=== PATIENT | male | born 1985 | race Caucasian/White ===

== ENCOUNTER → 2018-09-06 13:47 | Outpatient (CLI) | payer BC, SELFPAY | PROVIDERS: PCP Family Medicine; Visit Provider Otolaryngology | DX: G47.33 Obstructive sleep apnea (adult) (pediatric) (principal) | CPT/HCPCS: 95806 ==

== ENCOUNTER → 2018-10-18 13:49 | Outpatient (CLI) | payer BC, SELFPAY ==
--- NOTE | 2018-10-18 13:55 | US_ITS ---
US spinal canal content CLINICAL INDICATION: ITS.REASON: PALPABLE MASS OF LOWER BACK ORDERING PHYSICIAN: Shaye Vasques PATIENT AGE: 33 years Comparison: None FINDINGS: Ultrasound performed of the palpable abnormality on the lower back. The exam is very limited unable to completely penetrate the lesion and single lesion and whole. There is an isoechoic homogeneous area corresponding to the palpable abnormality measuring at least 5 x 3 cm possibly due to a lipoma. Sebaceous cyst would be an additional consideration. This does not have a simple cystic appearance IMPRESSION: 5 x 3 cm homogeneous area of echogenicity corresponding to palpable abnormality possibly due to lipoma. CT could confirm this finding. MRI may eventually be needed for further evaluation if this does not have a fatty appearance on CT.
--- NOTE | 2018-10-18 15:09 | CT_ITS ---
CT pelvis wo con INDICATION: Palpable abnormality in the left sacral area. Abnormal ultrasound. ITS.REASON: PALPABLE MASS ORDERING PHYSICIAN: Shaye Vasques PATIENT AGE: 33 years COMPARISON: None TECHNIQUE: Axial images are obtained without contrast. Sagittal and coronal reformatted images are reviewed as well. All CT scans at the facility use one or more dose reduction, viz: automated exposure control, ma/kV adjustment per patient size (including targeted exams where dose is matched to indication, i.e. head), or iterative reconstruction technique. FINDINGS: There is mild diffuse stranding of the subcutaneous fat in the lower lumbar region centrally. A BB is placed in the left upper buttock region to rosa the palpable abnormality. There is diffuse increased subcutaneous density in this region. This however is not well defined with stranding of the fat at this area. This is present on both left and right side but is more prominent on the left side. No loculated fluid collections are evident. No evidence of abscess or soft tissue mass. There is atrophy of the paraspinal muscles on the left at L5 and S1 with a suspected small laminotomy site on the left at L5-S1. There is concentric bulging disc at L4-5 with small broad-based left paracentral disc osteophyte complex with mild left lateral recess narrowing and mild left foraminal narrowing. Bulging disc/broad-based disc osteophyte complex also noted at L5-S1 with bilateral lateral recess and foraminal narrowing. IMPRESSION: 1. Asymmetric stranding of the subcutaneous region of the left posterior sacral region. Differential diagnosis would include some subcutaneous hemorrhage versus cellulitis. 2. Prior laminotomy on the left at L5-S1 with muscular atrophy on that side. 3. Bulging disc at L4-L5 and L5-S1 with small broad-based left paracentral disc osteophyte complex at L4-L5 with mild left lateral recess and foraminal narrowing and broad-based bulging discs/disc osteophyte complex at L5-S1 with bilateral lateral recess and foraminal narrowing
== END ==
PROVIDERS: PCP Family Medicine; Visit Provider Family Medicine
DX: R22.2 Localized swelling, mass and lump, trunk (principal)
CPT/HCPCS: 72192; 76800

== ENCOUNTER → 2018-10-27 15:53 | Outpatient (CLI) | payer SELFPAY | PROVIDERS: PCP Family Medicine; Visit Provider Family Medicine | DX: I49.9 Cardiac arrhythmia, unspecified (principal) | CPT/HCPCS: 93225; 93226 ==

== ENCOUNTER → 2019-01-25 13:30 | Outpatient (CLI) | payer OTHER, SELFPAY ==
[2019-01-25 13:57] LABS: Basophils % 0.3 % (0.1-2.0); Eosinophils # 0.2 K/mm3 (0.0-0.4); Eosinophils % 2.4 % (0.1-12.0); Hematocrit 45.3 % (42.0-52.0); Hemoglobin 15.6 g/dL (14.1-18.0); Lymphocytes # 2.3 K/mm3 (0.7-4.5); Mean Corpuscular HGB Conc 34.4 g/dL (31.8-35.4); Mean Corpuscular Hemoglobin 30.2 pg (27.0-31.2); Mean Corpuscular Volume 87.6 fl (80-94); Mean Platelet Volume 7.2 fl (7.4-10.4); Monocytes # 0.4 K/mm3 (0.1-1.0); Monocytes % 4.4 % (1.7-9.3); Neutrophils # 5.5 K/mm3 (1.8-7.8); Neutrophils % 65.9 % (37.0-80.0); Platelet Count 274 K/mm3 (142-424); Red Blood Count 5.17 M/mm3 (4.60-6.20); Red Cell Distribution Width 12.9 % (11.5-17.5); White Blood Count 8.4 K/mm3 (4.8-10.8)
[2019-01-25 15:20] LABS: Alanine Aminotransferase 50 U/L (12-78); Albumin Level 4.1 gm/dL (3.4-5.0); Alkaline Phosphatase 134 U/L (46-116); Aspartate Amino Transferase 30 U/L (15-37); Bilirubin,Direct 0.1 mg/dL (0.0-0.2); Bilirubin,Indirect 0.5 mg/dL (0.0-0.9); Bilirubin,Total 0.6 mg/dL (0.2-1.0); Total Protein,Serum 8.3 gm/dL (6.4-8.2)
[2019-01-28 17:29] LABS: Testosterone, Total, LC/MS 112.7 ng/dL (264.0-916.0); Testosterone,Free 2.9 pg/mL (8.7-25.1)
== END ==
PROVIDERS: Visit Provider Urology
DX: R79.89 Other specified abnormal findings of blood chemistry (principal); E29.1 Testicular hypofunction; E34.9 Endocrine disorder, unspecified
CPT/HCPCS: 36415; 80076; 84402; 84403; 85025

== ENCOUNTER → 2019-04-10 14:14 | Outpatient (POV) | payer OTHER, SELFPAY | PROVIDERS: Visit Provider Dermatology | DX: Z00.00 Encounter for general adult medical examination without abnormal findings (principal) ==

== ENCOUNTER → 2019-07-24 08:10 | Outpatient (CLI) | payer OTHER, SELFPAY ==
[2019-07-24 10:34] LABS: Bilirubin,Direct 0.1 mg/dL (0.0-0.2)
[2019-07-24 10:47] LABS: Alanine Aminotransferase 74 U/L (12-78); Albumin Level 3.9 gm/dL (3.4-5.0); Alkaline Phosphatase 105 U/L (46-116); Anion Gap 11.8 mEq/L (5-15); Aspartate Amino Transferase 40 U/L (15-37); Bilirubin,Total 0.6 mg/dL (0.2-1.0); Blood Urea Nitrogen 11 mg/dL (7-18); Calcium 9.3 mg/dL (8.5-10.1); Carbon Dioxide 31 mmol/L (21.0-32.0); Chloride 100 mmol/L (98-107); Chol/HDL Ratio 6.2 (1-3.5); Cholesterol 181 mg/dL (140-200); Creatinine,Serum 0.88 mg/dL (0.70-1.30); Estimated Glomerular Filt Rate 98 ml/min (>60); GFR (African American) 119 ML/MIN (>60); Globulin 3.9 gm/dl (1.3-3.2); Glucose 84 mg/dL (74-106); HDL Cholesterol 29 mg/dL (27-67); LDL Cholesterol 87 mg/dL (0-130); Potassium 3.8 mmoL/L (3.5-5.1); Sodium 139 mmol/L (136-145); Thyroid Stimulating Hormone 4.94 uIU/ml (0.358-3.740); Total Protein,Serum 7.8 gm/dL (6.4-8.2); Triglycerides 327 mg/dL (30-200); VLDL Cholesterol 65 mg/dL (0-40)
[2019-07-24 15:45] LABS: Free T4 (Free Thyroxine) 0.79 ng/dl (0.76-1.46)
[2019-07-27 06:28] LABS: Testosterone, Total, LC/MS 167.1 ng/dL (264.0-916.0); Testosterone,Free 5.4 pg/mL (8.7-25.1)
== END ==
PROVIDERS: Family Medicine; Nurse Practitioner Family; Visit Provider Urology
DX: E34.9 Endocrine disorder, unspecified (principal); E29.1 Testicular hypofunction
CPT/HCPCS: 36415; 80053; 80061; 82248; 83036; 84402; 84403; 84439; 84443

== ENCOUNTER → 2019-08-17 07:59 | Outpatient (CLI) | payer OTHER, SELFPAY ==
[2019-08-17 08:24] LABS: Basophils # 0.1 K/mm3 (0-0.2); Basophils % 0.6 % (0.1-2.0); Eosinophils # 0.1 K/mm3 (0.0-0.4); Eosinophils % 1.5 % (0.1-12.0); Hematocrit 48.2 % (42.0-52.0); Hemoglobin 15.1 g/dL (14.1-18.0); Lymphocytes # 2.2 K/mm3 (0.7-4.5); Mean Corpuscular HGB Conc 31.4 g/dL (31.8-35.4); Mean Corpuscular Hemoglobin 29.2 pg (27.0-31.2); Mean Corpuscular Volume 93.2 fl (80-94); Mean Platelet Volume 7.7 fl (7.4-10.4); Monocytes # 0.4 K/mm3 (0.1-1.0); Monocytes % 5.1 % (1.7-9.3); Neutrophils # 5.5 K/mm3 (1.8-7.8); Neutrophils % 66.7 % (37.0-80.0); Platelet Count 265 K/mm3 (142-424); Red Blood Count 5.17 M/mm3 (4.60-6.20); Red Cell Distribution Width 13.4 % (11.5-17.5); White Blood Count 8.3 K/mm3 (4.8-10.8)
[2019-08-17 09:22] LABS: Alanine Aminotransferase 52 U/L (12-78); Albumin Level 3.9 gm/dL (3.4-5.0); Alkaline Phosphatase 98 U/L (46-116); Aspartate Amino Transferase 29 U/L (15-37); Bilirubin,Direct 0.2 mg/dL (0.0-0.2); Bilirubin,Indirect 0.7 mg/dL (0.0-0.9); Bilirubin,Total 0.9 mg/dL (0.2-1.0); Total Protein,Serum 7.6 gm/dL (6.4-8.2)
[2019-08-18 12:32] LABS: Vitamin D 25 Hydroxy 15.1 ng/mL (30.0-100.0)
[2019-08-22 11:45] LABS: Testosterone, Total, LC/MS 742.5 ng/dL (264.0-916.0); Testosterone,Free 21.5 pg/mL (8.7-25.1)
== END ==
PROVIDERS: Family Medicine; Visit Provider Urology
DX: E29.1 Testicular hypofunction (principal); E55.9 Vitamin D deficiency, unspecified
CPT/HCPCS: 36415; 80076; 82652; 84402; 84403; 85025

== ENCOUNTER → 2019-10-17 08:38 | Outpatient (CLI) | payer OTHER, SELFPAY ==
[2019-10-18 11:19] LABS: Vitamin D 25 Hydroxy 23.4 ng/mL (30.0-100.0)
== END ==
PROVIDERS: Visit Provider Family Medicine
DX: E55.9 Vitamin D deficiency, unspecified (principal)
CPT/HCPCS: 36415; 82652

== ENCOUNTER → 2019-10-30 09:18 | Outpatient (POV) | payer OTHER, SELFPAY | PROVIDERS: Visit Provider Otolaryngology | DX: Z00.00 Encounter for general adult medical examination without abnormal findings (principal) ==

== ENCOUNTER → 2019-11-20 08:07 | Outpatient (CLI) | payer BC, OTHER, SELFPAY ==
--- NOTE | 2019-11-20 08:11 | CT_ITS ---
PROCEDURE: CT TEMPORAL BONE WITHOUT CLINICAL HISTORY: MIXED HEARING LOSS BILATERALLY, PERFORATION LY TYMPANIC MEMB COMPARISON: No exams were available for comparison TECHNIQUE: Axial images obtained with sagittal and coronal reformats. All CT scans at the facility use one or more dose reduction, viz: automated exposure control, ma/kV adjustment per patient size (including targeted exams where dose is matched to indication, i.e. head), or iterative reconstruction technique. FINDINGS: There is opacification of the right mastoid sinus and right epitympanic region. There is opacification of the right middle ear. Middle ear ossicles have an unremarkable appearance. No evidence of erosion of the scutum. Left mastoid sinus is unremarkable and there is aeration of the left middle ear with unremarkable appearing ossicles on the left. Incidental note is made of near complete opacification of the sphenoid sinus on the right. A lobular retention cyst is present in the floor the right maxillary sinus at 1.5 cm. There is mild mucosal thickening of the left maxillary sinus. There is very minimal widening of the right internal auditory canal compared to the left side. This is of questionable clinical significance. MRI may provide further evaluation of the IAC without and with contrast if clinically desired. IMPRESSION: 1. Opacified right mastoid sinus and epitympanic region as well as opacification of the right middle ear. No evidence of erosion of the scutum. 2. Minimal asymmetry of the internal auditory canals the right slightly larger than the left which is of questionable clinical significance and may be better evaluated with MRI without and with enhancement 3. Mild paranasal sinus disease Dictated by: Jeffery Stevens MD 11/21/2019 09:27 Electronically signed by Jeffery Stevens MD in [facility] 11/21/2019 09:27
== END ==
PROVIDERS: PCP Family Medicine; Visit Provider Otolaryngology
DX: H90.6 Mixed conductive and sensorineural hearing loss, bilateral (principal); H72.92 Unspecified perforation of tympanic membrane, left ear; I88.9 Nonspecific lymphadenitis, unspecified
CPT/HCPCS: 70480

== ENCOUNTER → 2019-11-20 10:03 | Outpatient (POV) | payer BC, OTHER, SELFPAY | PROVIDERS: Visit Provider Otolaryngology | DX: Z00.00 Encounter for general adult medical examination without abnormal findings (principal) ==

== ENCOUNTER 2019-11-23 13:32 | Outpatient (RCR) | payer BC, OTHER, SELFPAY | END 2019-11-23 14:00 | disposition home or self-care (01) | LOC: PT 13:32 | PROVIDERS: Visit Provider Nurse Practitioner Family | DX: M79.645 Pain in left finger(s) (principal); M25.532 Pain in left wrist | CPT/HCPCS: 97760 ==

== ENCOUNTER → 2019-12-06 08:55 | Outpatient (CLI) | payer BC, OTHER, SELFPAY ==
--- NOTE | 2019-12-06 09:02 | XR_ITS ---
PROCEDURE: XR WRIST LT MIN 3V CLINICAL INDICATION: left thumb/ wrist pain COMPARISON: No exams were available for comparison FINDINGS: There is no acute fracture dislocation or other focal bony lesion. Joint spaces are preserved. IMPRESSION: No acute findings. Dictated by: Angel Collins 12/06/2019 09:49 Electronically signed by Angel Collins in [facility] 12/06/2019 09:49
== END ==
PROVIDERS: PCP Family Medicine; Visit Provider Orthopaedic Surgery
DX: M25.532 Pain in left wrist (principal)
CPT/HCPCS: 73110

== ENCOUNTER → 2020-01-11 12:25 | Outpatient (CLI) | payer BC, OTHER, SELFPAY ==
[2020-01-12 08:31] LABS: Vitamin D 25 Hydroxy 33.8 ng/mL (30.0-100.0)
== END ==
PROVIDERS: Visit Provider Family Medicine
DX: E55.9 Vitamin D deficiency, unspecified (principal)
CPT/HCPCS: 36415; 82652

== ENCOUNTER → 2020-07-25 09:19 | Outpatient (CLI) | payer BC, OTHER, MEDICAID, SELFPAY ==
[2020-07-25 10:29] LABS: Basophils % 0.3 % (0.1-2.0); Eosinophils # 0.2 K/mm3 (0.0-0.4); Hematocrit 47.1 % (42.0-52.0); Hemoglobin 16.4 g/dL (14.1-18.0); Lymphocytes % 24.2 % (10-50); Mean Corpuscular HGB Conc 34.9 g/dL (31.8-35.4); Mean Corpuscular Hemoglobin 31.8 pg (27.0-31.2); Monocytes # 0.4 K/mm3 (0.1-1.0); Monocytes % 4.2 % (1.7-9.3); Neutrophils # 5.8 K/mm3 (1.8-7.8); Neutrophils % 69.3 % (37.0-80.0); Platelet Count 247 K/mm3 (142-424); Red Blood Count 5.18 M/mm3 (4.60-6.20); Red Cell Distribution Width 13.6 % (11.5-17.5); White Blood Count 8.3 K/mm3 (4.8-10.8)
[2020-07-25 11:11] LABS: Alanine Aminotransferase 31 U/L (12-78); Albumin Level 4.3 g/dl (3.5-5.0); Albumin/Globulin Ratio 1.3 (1.1-1.8); Alkaline Phosphatase 99 U/L (38-126); Anion Gap 9.8 mEq/L (5-15); Aspartate Amino Transferase 40 U/L (17-59); Bilirubin,Total 0.7 mg/dl (0.2-1.3); Blood Urea Nitrogen 13 mg/dl (9-20); Calcium 9.5 mg/dl (8.4-10.2); Carbon Dioxide 34 mmol/L (22.0-30.0); Chloride 99 mmol/L (98-107); Chol/HDL Ratio 5.5 (1-3.5); Cholesterol 159 mg/dl (140-200); Estimated Glomerular Filt Rate 95 ml/min (>60); GFR (African American) 115 ML/MIN (>60); Globulin 3.2 g/dL (1.3-3.2); Glucose 89 mg/dl (74-100); HDL Cholesterol 29 mg/dl (40-60); Potassium 3.8 mmoL/L (3.5-5.1); Sodium 139 mmol/L (136-145); Total Protein,Serum 7.5 g/dl (6.3-8.2); Triglycerides 293 mg/dl (30-150); VLDL Cholesterol 59 mg/dL (0-40)
[2020-07-25 11:13] LABS: Alanine Aminotransferase 31 U/L (12-78); Albumin Level 4.4 g/dl (3.5-5.0); Alkaline Phosphatase 98 U/L (38-126); Aspartate Amino Transferase 41 U/L (17-59); Bilirubin,Direct 0.1 mg/dl (0.0-0.4); Bilirubin,Indirect 0.7 mg/dL (0.0-0.9); Bilirubin,Total 0.8 mg/dl (0.2-1.3); Bilirubin,Unconjugated 0.7 mg/dL (0.0-1.1); Total Protein,Serum 7.6 g/dl (6.3-8.2)
[2020-07-25 11:30] LABS: 25-OH Vitamin D, Total 50.8 ng/mL (30-100)
[2020-07-25 11:31] LABS: Free T4 (Free Thyroxine) 0.68 ng/dl (0.78-2.19)
[2020-07-25 11:46] LABS: Thyroid Stimulating Hormone 4.27 uIU/mL (0.465-4.68)
[2020-07-25 14:22] LABS: Hemoglobin A1C 5.9 % (4.0-6.0)
[2020-07-29 15:03] LABS: Testosterone, Total, LC/MS 705.9 ng/dL (264.0-916.0); Testosterone,Free 26.5 pg/mL (8.7-25.1)
== END ==
PROVIDERS: Family Medicine; Visit Provider Urology
DX: Z00.00 Encounter for general adult medical examination without abnormal findings (principal); R79.89 Other specified abnormal findings of blood chemistry; E34.9 Endocrine disorder, unspecified; E66.9 Obesity, unspecified; E55.9 Vitamin D deficiency, unspecified
CPT/HCPCS: 36415; 80053; 80061; 80076; 82306; 83036; 84402; 84403; 84439; 84443; 85025

== ENCOUNTER → 2020-08-01 14:04 | Outpatient (CLI) | payer BC, OTHER, MEDICAID, SELFPAY ==
[2020-08-01 15:40] LABS: Vitamin B12 371 pg/mL (239-931)
[2020-08-03 14:02] LABS: Estradiol 57.1 pg/mL (7.6-42.6)
== END ==
PROVIDERS: Nurse Practitioner Family; Visit Provider Urology
DX: E34.9 Endocrine disorder, unspecified (principal)
CPT/HCPCS: 36415; 82607; 82670

== ENCOUNTER → 2021-01-30 13:59 | Outpatient (CLI) | payer BC, OTHER, MEDICAID, SELFPAY ==
[2021-01-30 14:37] LABS: Basophils # 0.1 K/mm3 (0-0.2); Basophils % 0.6 % (0.1-2.0); Eosinophils # 0.1 K/mm3 (0.0-0.4); Eosinophils % 1.5 % (0.1-12.0); Hematocrit 50.5 % (42.0-52.0); Hemoglobin 16.3 g/dL (14.1-18.0); Lymphocytes # 2.2 K/mm3 (0.7-4.5); Mean Corpuscular HGB Conc 32.4 g/dL (31.8-35.4); Mean Corpuscular Hemoglobin 29.8 pg (27.0-31.2); Mean Corpuscular Volume 92.2 fl (80-94); Mean Platelet Volume 7.5 fl (7.4-10.4); Monocytes # 0.6 K/mm3 (0.1-1.0); Monocytes % 5.8 % (1.7-9.3); Neutrophils # 6.7 K/mm3 (1.8-7.8); Neutrophils % 69.1 % (37.0-80.0); Platelet Count 267 K/mm3 (142-424); Red Blood Count 5.47 M/mm3 (4.60-6.20); Red Cell Distribution Width 12.6 % (11.5-17.5); White Blood Count 9.7 K/mm3 (4.8-10.8)
[2021-01-30 15:07] LABS: Alanine Aminotransferase 54 U/L (12-78); Albumin Level 4.9 g/dl (3.5-5.0); Alkaline Phosphatase 89 U/L (38-126); Aspartate Amino Transferase 46 U/L (17-59); Bilirubin,Indirect 0.6 mg/dL (0.0-0.9); Bilirubin,Total 0.6 mg/dl (0.2-1.3); Bilirubin,Unconjugated 0.6 mg/dL (0.0-1.1); Total Protein,Serum 8.3 g/dl (6.3-8.2)
[2021-02-06 14:01] LABS: Testosterone, Total, LC/MS 500.2 ng/dL (264.0-916.0); Testosterone,Free 17.1 pg/mL (8.7-25.1)
== END ==
PROVIDERS: Visit Provider Urology
DX: E34.9 Endocrine disorder, unspecified (principal)
CPT/HCPCS: 36415; 80076; 84402; 84403; 85025

== ENCOUNTER → 2021-04-21 17:56 | Outpatient (CLI) | payer BC, OTHER, SELFPAY | PROVIDERS: PCP Family Medicine; Visit Provider Specialist | DX: G47.33 Obstructive sleep apnea (adult) (pediatric) (principal) | CPT/HCPCS: 94762 ==

== ENCOUNTER → 2021-06-02 10:50 | Outpatient (POV) | payer BC, OTHER, SELFPAY | PROVIDERS: Visit Provider Otolaryngology | DX: Z00.00 Encounter for general adult medical examination without abnormal findings (principal) ==

== ENCOUNTER → 2021-06-16 10:53 | Outpatient (POV) | payer BC, OTHER, SELFPAY | PROVIDERS: Visit Provider Otolaryngology | DX: Z00.00 Encounter for general adult medical examination without abnormal findings (principal) ==

== ENCOUNTER → 2021-08-04 10:19 | Outpatient (POV) | payer BC, OTHER, SELFPAY | PROVIDERS: Visit Provider Otolaryngology | DX: Z00.00 Encounter for general adult medical examination without abnormal findings (principal) ==

== ENCOUNTER → 2021-08-04 10:56 | Outpatient (CLI) | payer BC, OTHER, SELFPAY ==
[2021-08-04 10:58] LABS: MANUAL DIFFERENTIAL MANUAL DIFFERENTIAL (MANUAL DIFF)
[2021-08-04 11:23] LABS: Basophils % 0.5 % (0.1-2.0); Eosinophils # 0.2 K/mm3 (0.0-0.4); Hematocrit 46.5 % (42.0-52.0); Hemoglobin 15.5 g/dL (14.1-18.0); Lymphocytes # 1.8 K/mm3 (0.7-4.5); Lymphocytes % 22.5 % (10-50); Mean Corpuscular HGB Conc 33.3 g/dL (31.8-35.4); Mean Platelet Volume 7.9 fl (7.4-10.4); Monocytes # 0.4 K/mm3 (0.1-1.0); Monocytes % 5.2 % (1.7-9.3); Neutrophils # 5.4 K/mm3 (1.8-7.8); Neutrophils % 69.8 % (37.0-80.0); Platelet Count 275 K/mm3 (142-424); Red Cell Distribution Width 13.5 % (11.5-17.5); White Blood Count 7.8 K/mm3 (4.8-10.8)
[2021-08-04 11:55] LABS: Alanine Aminotransferase 49 U/L (12-78); Albumin Level 4.1 g/dl (3.5-5.0); Alkaline Phosphatase 95 U/L (38-126); Aspartate Amino Transferase 48 U/L (17-59); Bilirubin,Direct 0.1 mg/dl (0.0-0.4); Bilirubin,Indirect 0.3 mg/dL (0.0-0.9); Bilirubin,Total 0.4 mg/dl (0.2-1.3); Bilirubin,Unconjugated 0.3 mg/dL (0.0-1.1); Total Protein,Serum 7.3 g/dl (6.3-8.2)
[2021-08-04 12:09] LABS: Eosinophils % 3 % (0-3); Lymphocytes % 21 % (10-50); Monocytes % 2 % (2-9); Myelocytes % 1 (0-1); Neutrophils % 71 % (42-76); Platelet Estimate Normal; Total Cells Counted 100
[2021-08-05 08:28] LABS: Estradiol 93.6 pg/mL (7.6-42.6)
== END ==
PROVIDERS: Visit Provider Urology
DX: E29.1 Testicular hypofunction (principal)
CPT/HCPCS: 36415; 80076; 82670; 84402; 84403; 85007; 85014; 85018; 85048; 85049

== ENCOUNTER → 2021-09-26 15:03 | Outpatient (CLI) | payer BC, OTHER, SELFPAY | PROVIDERS: PCP Nurse Practitioner Family; Visit Provider Nurse Practitioner Family | DX: S41.102A Unspecified open wound of left upper arm, initial encounter (principal); B95.8 Unspecified staphylococcus as the cause of diseases classified elsewhere; L02.91 Cutaneous abscess, unspecified | CPT/HCPCS: 87070; 87077; 87186; 87205 ==

== ENCOUNTER → 2022-02-03 07:57 | Outpatient (CLI) | payer BC, OTHER, SELFPAY ==
[2022-02-03 08:35] LABS: Basophils % 0.4 % (0.1-2.0); Eosinophils # 0.1 K/mm3 (0.0-0.4); Eosinophils % 1.5 % (0.1-12.0); Hematocrit 48.4 % (42.0-52.0); Lymphocytes # 2.1 K/mm3 (0.7-4.5); Lymphocytes % 26.1 % (10-50); Mean Corpuscular Hemoglobin 30.8 pg (27.0-31.2); Mean Corpuscular Volume 93.4 fl (80-94); Mean Platelet Volume 8.3 fl (7.4-10.4); Monocytes # 0.4 K/mm3 (0.1-1.0); Monocytes % 5.5 % (1.7-9.3); Neutrophils # 5.3 K/mm3 (1.8-7.8); Neutrophils % 66.4 % (37.0-80.0); Platelet Count 274 K/mm3 (142-424); Red Blood Count 5.18 M/mm3 (4.60-6.20); Red Cell Distribution Width 13.6 % (11.5-17.5)
[2022-02-03 09:02] LABS: Alanine Aminotransferase 59 U/L (12-78); Albumin Level 4.3 g/dl (3.5-5.0); Alkaline Phosphatase 89 U/L (38-126); Anion Gap 12.2 mEq/L (5-15); Aspartate Amino Transferase 49 U/L (17-59); Bilirubin,Direct 0.1 mg/dl (0.0-0.4); Bilirubin,Indirect 0.5 mg/dL (0.0-0.9); Bilirubin,Total 0.6 mg/dl (0.2-1.3); Bilirubin,Unconjugated 0.5 mg/dL (0.0-1.1); Blood Urea Nitrogen 13 mg/dl (9-20); Calcium 9.4 mg/dl (8.4-10.2); Carbon Dioxide 31 mmol/L (22.0-30.0); Chloride 100 mmol/L (98-107); Chol/HDL Ratio 5.4 (1-3.5); Cholesterol 178 mg/dl (140-200); Estimated Glomerular Filt Rate 108 ml/min (>60); GFR (African American) 131 ML/MIN (>60); Glucose 95 mg/dl (74-100); HDL Cholesterol 33 mg/dl (40-60); Potassium 4.2 mmoL/L (3.5-5.1); Sodium 139 mmol/L (136-145); Total Protein,Serum 7.4 g/dl (6.3-8.2); Triglycerides 266 mg/dl (30-150); VLDL Cholesterol 53 mg/dL (0-40)
[2022-02-03 09:12] LABS: Hemoglobin A1C 5.9 % (4.0-6.0)
[2022-02-03 09:13] LABS: Direct LDL Cholesterol 84.97 mg/dL (100-129)
[2022-02-03 09:33] LABS: Thyroid Stimulating Hormone 4.59 uIU/mL (0.465-4.68)
[2022-02-03 09:51] LABS: Vitamin B12 389 pg/mL (239-931)
[2022-02-04 08:25] LABS: Estradiol 34.1 pg/mL (7.6-42.6)
[2022-02-08 21:17] LABS: 1,25 Dihydroxy Vitamin D 27 pg/mL (.); 1,25-Dihydroxy, Vitamin D-2 <10 pg/mL (.); 1,25-Dihydroxy, Vitamin D-3 27 pg/mL (.)
[2022-02-16 18:32] LABS: Testosterone, Total, LC/MS 144.8 ng/dL (264.0-916.0); Testosterone,Free 7.1 pg/mL (8.7-25.1)
== END ==
PROVIDERS: Visit Provider Nurse Practitioner Family
DX: E34.9 Endocrine disorder, unspecified (principal); E55.9 Vitamin D deficiency, unspecified; E66.01 Morbid (severe) obesity due to excess calories; G47.33 Obstructive sleep apnea (adult) (pediatric); R53.83 Other fatigue; Z68.41 Body mass index [BMI] 40.0-44.9, adult; Z86.39 Personal history of other endocrine, nutritional and metabolic disease
CPT/HCPCS: 36415; 80048; 80061; 80076; 82607; 82652; 82670; 83036; 84402; 84403; 84443; 85025

== ENCOUNTER → 2022-07-29 10:47 | Outpatient (CLI) | payer BC, OTHER, SELFPAY ==
[2022-07-29 10:52] LABS: MANUAL DIFFERENTIAL MANUAL DIFFERENTIAL (MANUAL DIFF)
[2022-07-29 11:22] LABS: Basophils # 0.1 K/mm3 (0-0.2); Basophils % 0.9 % (0.1-2.0); Eosinophils # 0.2 K/mm3 (0.0-0.4); Eosinophils % 1.8 % (0.1-12.0); Hematocrit 48.1 % (42.0-52.0); Hemoglobin 15.9 g/dL (14.1-18.0); Lymphocytes # 1.9 K/mm3 (0.7-4.5); Lymphocytes % 23.6 % (10-50); Mean Corpuscular Hemoglobin 31.1 pg (27.0-31.2); Mean Corpuscular Volume 94.2 fl (80-94); Mean Platelet Volume 8.1 fl (7.4-10.4); Monocytes # 0.4 K/mm3 (0.1-1.0); Monocytes % 5.3 % (1.7-9.3); Neutrophils # 5.6 K/mm3 (1.8-7.8); Neutrophils % 68.4 % (37.0-80.0); Platelet Count 267 K/mm3 (142-424); Red Blood Count 5.11 M/mm3 (4.60-6.20); Red Cell Distribution Width 13.7 % (11.5-17.5); White Blood Count 8.2 K/mm3 (4.8-10.8)
[2022-07-29 11:36] LABS: Alanine Aminotransferase 74 U/L (12-78); Albumin Level 4.3 g/dl (3.5-5.0); Alkaline Phosphatase 108 U/L (38-126); Aspartate Amino Transferase 67 U/L (17-59); Bilirubin,Direct 0.2 mg/dl (0.0-0.4); Bilirubin,Indirect 0.3 mg/dL (0.0-0.9); Bilirubin,Total 0.5 mg/dl (0.2-1.3); Bilirubin,Unconjugated 0.3 mg/dL (0.0-1.1); Total Protein,Serum 7.5 g/dl (6.3-8.2)
[2022-07-29 12:26] LABS: Eosinophils % 2 % (0-3); Lymphocytes % 25 % (10-50); Monocytes % 5 % (2-9); Neutrophils % 68 % (42-76); Total Cells Counted 100
[2022-07-29 12:27] LABS: Platelet Estimate Normal; RBC Morphology Normal
[2022-08-03 18:09] LABS: Testosterone, Total, LC/MS 1374.2 ng/dL (264.0-916.0); Testosterone,Free 38.1 pg/mL (8.7-25.1)
== END ==
PROVIDERS: PCP Family Medicine; Visit Provider Urology
DX: E29.1 Testicular hypofunction (principal)
CPT/HCPCS: 36415; 80076; 84402; 84403; 85007; 85014; 85018; 85048; 85049

== ENCOUNTER → 2022-10-29 08:12 | Outpatient (CLI) | payer BC, OTHER, SELFPAY ==
[2022-10-29 08:23] LABS: Microscopic, Urine URINE MICROSCOPIC (MICROSCOPIC)
[2022-10-29 08:44] LABS: Appearance,Urine CLEAR (Clear); Bilirubin,Urine Negative (Negative); Blood, Urine Negative (Negative); Color,Urine YELLOW (Yellow); Glucose,Urine (UA) Negative (Negative); Ketones,Urine Negative (Negative); Leukocyte Esterase,Urine 1+ (Negative); Nitrate,Urine Negative (Negative); PH,Urine 6.5 (5.0-8.5); Protein,Urine Negative (Negative); Specific Gravity, Urine 1.025 (1.005-1.030)
[2022-10-29 08:49] LABS: Basophils % 0.5 % (0.1-2.0); Eosinophils # 0.4 K/mm3 (0.0-0.4); Eosinophils % 4.3 % (0.1-12.0); Hematocrit 48.5 % (42.0-52.0); Hemoglobin 15.5 g/dL (14.1-18.0); Lymphocytes # 2.2 K/mm3 (0.7-4.5); Lymphocytes % 25.3 % (10-50); Mean Corpuscular HGB Conc 31.9 g/dL (31.8-35.4); Mean Corpuscular Hemoglobin 29.8 pg (27.0-31.2); Mean Corpuscular Volume 93.4 fl (80-94); Monocytes # 0.4 K/mm3 (0.1-1.0); Monocytes % 4.1 % (1.7-9.3); Neutrophils # 5.8 K/mm3 (1.8-7.8); Neutrophils % 65.8 % (37.0-80.0); Platelet Count 264 K/mm3 (142-424); Red Blood Count 5.19 M/mm3 (4.60-6.20); White Blood Count 8.8 K/mm3 (4.8-10.8)
[2022-10-29 09:00] LABS: Bacteria,Urine Trace /lpf; Squamous Epithelial Cell,Urine Occasional #/hpf (0-5); WBC,Urine 20-50 #/hpf (0-3)
[2022-10-29 09:07] LABS: Hemoglobin A1C 6.2 % (4.0-6.0)
[2022-10-29 09:17] LABS: Chloride 99 mmol/L (98-107); Sodium 140 mmol/L (136-145)
[2022-10-29 09:20] LABS: Alanine Aminotransferase 67 U/L (12-78); Albumin Level 4.5 g/dl (3.5-5.0); Albumin/Globulin Ratio 1.6 (1.1-1.8); Alkaline Phosphatase 110 U/L (38-126); Aspartate Amino Transferase 51 U/L (17-59); Bilirubin,Total 0.5 mg/dl (0.2-1.3); Blood Urea Nitrogen 8 mg/dl (9-20); Calcium 9.8 mg/dl (8.4-10.2); Carbon Dioxide 34 mmol/L (22.0-30.0); Cholesterol 199 mg/dl (140-200); Estimated Glomerular Filt Rate 83 ml/min (>60); GFR (African American) 101 ML/MIN (>60); Globulin 2.9 g/dL (1.3-3.2); Glucose 82 mg/dl (74-100); Iron 82 ug/dL (49-181); Total Protein,Serum 7.4 g/dl (6.3-8.2); Triglycerides 341 mg/dl (30-150); VLDL Cholesterol 68 mg/dL (0-40)
[2022-10-29 09:21] LABS: Chol/HDL Ratio 7.1 (1-3.5); HDL Cholesterol 28 mg/dl (40-60)
[2022-10-29 09:30] LABS: Total Iron Binding Capacity 288 ug/dL (261-462)
[2022-10-29 09:32] LABS: Direct LDL Cholesterol 86.41 mg/dL (100-129)
[2022-10-29 09:37] LABS: 25-OH Vitamin D, Total 49.8 ng/mL (30-100)
[2022-10-29 10:03] LABS: Thyroid Stimulating Hormone 4.09 uIU/mL (0.465-4.68)
[2022-10-29 10:33] LABS: Vitamin B12 380 pg/mL (239-931)
[2022-10-29 10:34] LABS: Folate 4.79 ng/mL
[2022-11-03 19:34] LABS: Testosterone, Total, LC/MS 319.8 ng/dL (264.0-916.0); Testosterone,Free 10.7 pg/mL (8.7-25.1)
== END ==
PROVIDERS: PCP Family Medicine; Visit Provider Family Medicine
DX: R53.83 Other fatigue (principal); E55.9 Vitamin D deficiency, unspecified; R03.0 Elevated blood-pressure reading, without diagnosis of hypertension; E78.1 Pure hyperglyceridemia; N39.0 Urinary tract infection, site not specified; Z13.1 Encounter for screening for diabetes mellitus
CPT/HCPCS: 36415; 80053; 80061; 81001; 82306; 82607; 82746; 83036; 83540; 83550; 84402; 84403; 84443; 85025; 87086

== ENCOUNTER → 2022-12-24 08:49 | Outpatient (CLI) | payer BC, OTHER, SELFPAY ==
[2022-12-25 12:51] LABS: Estradiol 24.4 pg/mL (7.6-42.6)
[2022-12-31 04:27] LABS: Testosterone, Total, LC/MS 83.8 ng/dL (264.0-916.0)
== END ==
PROVIDERS: PCP Family Medicine; Visit Provider Nurse Practitioner Family
DX: E34.9 Endocrine disorder, unspecified (principal)
CPT/HCPCS: 36415; 82670; 84402; 84403

== ENCOUNTER → 2023-02-28 08:01 | Outpatient (CLI) | payer BC, OTHER, SELFPAY ==
[2023-02-28 08:37] LABS: Basophils % 0.3 % (0.1-2.0); Eosinophils # 0.1 K/mm3 (0.0-0.4); Eosinophils % 1.3 % (0.1-12.0); Hematocrit 46.9 % (42.0-52.0); Hemoglobin 15.2 g/dL (14.1-18.0); Lymphocytes # 1.8 K/mm3 (0.7-4.5); Lymphocytes % 24.7 % (10-50); Mean Corpuscular HGB Conc 32.3 g/dL (31.8-35.4); Mean Corpuscular Hemoglobin 30.4 pg (27.0-31.2); Mean Corpuscular Volume 94.1 fl (80-94); Mean Platelet Volume 8.1 fl (7.4-10.4); Monocytes # 0.3 K/mm3 (0.1-1.0); Monocytes % 3.9 % (1.7-9.3); Neutrophils # 5.2 K/mm3 (1.8-7.8); Neutrophils % 69.8 % (37.0-80.0); Platelet Count 225 K/mm3 (142-424); Red Blood Count 4.98 M/mm3 (4.60-6.20); White Blood Count 7.5 K/mm3 (4.8-10.8)
[2023-02-28 09:16] LABS: Chloride 101 mmol/L (98-107)
[2023-02-28 09:17] LABS: Hemoglobin A1C 5.1 % (4.0-6.0); Potassium 4.4 mmoL/L (3.5-5.1)
[2023-02-28 09:19] LABS: Alanine Aminotransferase 43 U/L (12-78); Anion Gap 13.4 mEq/L (5-15); Aspartate Amino Transferase 43 U/L (17-59); Blood Urea Nitrogen 18 mg/dl (9-20); Carbon Dioxide 31 mmol/L (22.0-30.0); Estimated Glomerular Filt Rate 83 ml/min (>60); GFR (African American) 101 ML/MIN (>60); Sodium 141 mmol/L (136-145)
[2023-02-28 09:20] LABS: Albumin Level 4.4 g/dl (3.5-5.0); Albumin/Globulin Ratio 1.5 (1.1-1.8); Alkaline Phosphatase 101 U/L (38-126); Bilirubin,Total 0.7 mg/dl (0.2-1.3); Calcium 9.2 mg/dl (8.4-10.2); Chol/HDL Ratio 3.6 (1-3.5); Cholesterol 135 mg/dl (140-200); Glucose 93 mg/dl (74-100); HDL Cholesterol 37 mg/dl (40-60); Total Protein,Serum 7.4 g/dl (6.3-8.2); Triglycerides 165 mg/dl (30-150); VLDL Cholesterol 33 mg/dL (0-40)
[2023-02-28 09:31] LABS: Direct LDL Cholesterol 60.09 mg/dL (100-129)
[2023-02-28 09:37] LABS: Free T4 (Free Thyroxine) 0.83 ng/dl (0.78-2.19)
[2023-03-01 14:11] LABS: LH 0.8 mIU/mL (1.7-8.6); Prolactin 6.3 ng/mL (4.0-15.2); Sex Hormone Binding Globulin 14.6 nmol/L (16.5-55.9); Triiodothyronine (T3) Free 3.8 pg/mL (2.0-4.4)
[2023-03-07 03:55] LABS: Testosterone, Total, LC/MS 26 ng/dL (.)
== END ==
LOC: LAB 08:02
PROVIDERS: PCP Family Medicine; Visit Provider Specialist
DX: E29.1 Testicular hypofunction (principal); D35.2 Benign neoplasm of pituitary gland
CPT/HCPCS: 36415; 80053; 80061; 82787; 83001; 83002; 83036; 84146; 84270; 84403; 84439; 84443; 84481; 85025

== ENCOUNTER → 2023-06-01 11:18 | Outpatient (CLI) | payer BC, OTHER, SELFPAY ==
[2023-06-01 11:44] LABS: Basophils # 0.1 K/mm3 (0-0.2); Basophils % 0.6 % (0.1-2.0); Eosinophils # 0.2 K/mm3 (0.0-0.4); Eosinophils % 2.5 % (0.1-12.0); Hematocrit 48.6 % (42.0-52.0); Hemoglobin 15.4 g/dL (14.1-18.0); Lymphocytes # 1.9 K/mm3 (0.7-4.5); Lymphocytes % 22.9 % (10-50); Mean Corpuscular HGB Conc 31.8 g/dL (31.8-35.4); Mean Corpuscular Hemoglobin 28.9 pg (27.0-31.2); Mean Corpuscular Volume 91.1 fl (80-94); Mean Platelet Volume 8.1 fl (7.4-10.4); Monocytes # 0.4 K/mm3 (0.1-1.0); Monocytes % 4.8 % (1.7-9.3); Neutrophils # 5.7 K/mm3 (1.8-7.8); Neutrophils % 69.3 % (37.0-80.0); Platelet Count 237 K/mm3 (142-424); Red Blood Count 5.33 M/mm3 (4.60-6.20); Red Cell Distribution Width 14.2 % (11.5-17.5); White Blood Count 8.2 K/mm3 (4.8-10.8)
[2023-06-01 11:58] LABS: Hemoglobin A1C 5.6 % (4.0-6.0)
[2023-06-01 12:11] LABS: Alanine Aminotransferase 48 U/L (12-78); Albumin Level 4.5 g/dl (3.5-5.0); Albumin/Globulin Ratio 1.5 (1.1-1.8); Alkaline Phosphatase 107 U/L (38-126); Anion Gap 10.1 mEq/L (5-15); Aspartate Amino Transferase 63 U/L (17-59); Bilirubin,Total 0.8 mg/dl (0.2-1.3); Blood Urea Nitrogen 16 mg/dl (9-20); Calcium 9.3 mg/dl (8.4-10.2); Carbon Dioxide 33 mmol/L (22.0-30.0); Chloride 100 mmol/L (98-107); Chol/HDL Ratio 4.7 (1-3.5); Cholesterol 187 mg/dl (140-200); Estimated Glomerular Filt Rate 74 ml/min (>60); GFR (African American) 90 ML/MIN (>60); Globulin 3.1 g/dL (1.3-3.2); Glucose 95 mg/dl (74-100); HDL Cholesterol 40 mg/dl (40-60); Potassium 4.1 mmoL/L (3.5-5.1); Sodium 139 mmol/L (136-145); Total Protein,Serum 7.6 g/dl (6.3-8.2); Triglycerides 217 mg/dl (30-150); VLDL Cholesterol 43 mg/dL (0-40)
[2023-06-01 12:22] LABS: Direct LDL Cholesterol 96.79 mg/dL (100-129)
[2023-06-01 12:42] LABS: Prostate Specific Ag Screen 1.4 ng/ml (0.0-4.0); Thyroid Stimulating Hormone 3.18 uIU/mL (0.465-4.68)
[2023-06-02 09:53] LABS: FSH <0.3 mIU/mL (1.5-12.4); LH <0.3 mIU/mL (1.7-8.6); Prolactin 15.9 ng/mL (4.0-15.2); Triiodothyronine (T3) Free 3.6 pg/mL (2.0-4.4)
[2023-06-07 22:24] LABS: Testosterone, Total, LC/MS 335 ng/dL (.)
== END ==
LOC: LAB 11:18
PROVIDERS: Visit Provider Specialist
DX: E23.0 Hypopituitarism (principal); E29.1 Testicular hypofunction
CPT/HCPCS: 36415; 80053; 80061; 82787; 83001; 83002; 83036; 84146; 84270; 84403; 84443; 84481; 85025; G0103

== ENCOUNTER → 2023-09-14 08:15 | Outpatient (CLI) | payer BC, OTHER, SELFPAY ==
[2023-09-14 09:00] LABS: Basophils % 0.4 % (0.1-2.0); Eosinophils # 0.1 K/mm3 (0.0-0.4); Eosinophils % 1.5 % (0.1-12.0); Hematocrit 48.1 % (42.0-52.0); Hemoglobin 16.2 g/dL (14.1-18.0); Lymphocytes # 1.8 K/mm3 (0.7-4.5); Mean Corpuscular HGB Conc 33.7 g/dL (31.8-35.4); Mean Corpuscular Hemoglobin 30.7 pg (27.0-31.2); Mean Corpuscular Volume 90.9 fl (80-94); Mean Platelet Volume 8.5 fl (7.4-10.4); Monocytes # 0.4 K/mm3 (0.1-1.0); Monocytes % 4.9 % (1.7-9.3); Neutrophils % 68.4 % (37.0-80.0); Platelet Count 224 K/mm3 (142-424); Red Blood Count 5.29 M/mm3 (4.60-6.20); Red Cell Distribution Width 13.5 % (11.5-17.5); White Blood Count 7.3 K/mm3 (4.8-10.8)
[2023-09-14 09:43] LABS: Alanine Aminotransferase 47 U/L (12-78); Albumin Level 4.8 g/dl (3.5-5.0); Albumin/Globulin Ratio 1.5 (1.1-1.8); Alkaline Phosphatase 84 U/L (38-126); Anion Gap 12.2 mEq/L (5-15); Aspartate Amino Transferase 69 U/L (17-59); Blood Urea Nitrogen 17 mg/dl (9-20); Calcium 9.6 mg/dl (8.4-10.2); Carbon Dioxide 33 mmol/L (22.0-30.0); Chloride 99 mmol/L (98-107); Estimated Glomerular Filt Rate 67 ml/min (>60); GFR (African American) 81 ML/MIN (>60); Globulin 3.3 g/dL (1.3-3.2); Glucose 101 mg/dl (74-100); Potassium 4.2 mmoL/L (3.5-5.1); Sodium 140 mmol/L (136-145); Total Protein,Serum 8.1 g/dl (6.3-8.2)
[2023-09-14 10:14] LABS: Prostate Specific Ag Screen 1.2 ng/ml (0.0-4.0); Thyroid Stimulating Hormone 4.07 uIU/mL (0.465-4.68)
[2023-09-14 16:46] LABS: Hemoglobin A1C 5.5 % (4.0-6.0)
[2023-09-15 09:52] LABS: Triiodothyronine (T3) Free 3.3 pg/mL (2.0-4.4)
[2023-09-20 18:08] LABS: Testosterone, Total, LC/MS 173 ng/dL (.)
== END ==
PROVIDERS: PCP Nurse Practitioner Family; Visit Provider Specialist
DX: E23.0 Hypopituitarism (principal); R53.82 Chronic fatigue, unspecified
CPT/HCPCS: 36415; 80053; 83036; 84403; 84439; 84443; 84481; 85025; G0103

== ENCOUNTER 2024-01-20 08:01 | Outpatient (CLI) | payer BC, OTHER, SELFPAY ==
[2024-01-20 08:28] LABS: Basophils % 0.6 % (0.1-2.0); Eosinophils # 0.2 K/mm3 (0.0-0.4); Eosinophils % 2.1 % (0.1-12.0); Hematocrit 51.3 % (42.0-52.0); Hemoglobin 16.7 g/dL (14.1-18.0); Lymphocytes # 1.8 K/mm3 (0.7-4.5); Lymphocytes % 24.3 % (10-50); Mean Corpuscular HGB Conc 32.5 g/dL (31.8-35.4); Mean Corpuscular Hemoglobin 31.1 pg (27.0-31.2); Mean Corpuscular Volume 95.5 fl (80-94); Mean Platelet Volume 7.6 fl (7.4-10.4); Monocytes # 0.4 K/mm3 (0.1-1.0); Monocytes % 5.2 % (1.7-9.3); Neutrophils % 67.8 % (37.0-80.0); Platelet Count 223 K/mm3 (142-424); Red Blood Count 5.37 M/mm3 (4.60-6.20); Red Cell Distribution Width 13.6 % (11.5-17.5); White Blood Count 7.4 K/mm3 (4.8-10.8)
[2024-01-20 09:26] LABS: Alanine Aminotransferase 46 U/L (12-78); Albumin Level 4.8 g/dl (3.5-5.0); Albumin/Globulin Ratio 1.5 (1.1-1.8); Alkaline Phosphatase 97 U/L (38-126); Aspartate Amino Transferase 67 U/L (17-59); Blood Urea Nitrogen 16 mg/dl (9-20); Calcium 9.5 mg/dl (8.4-10.2); Carbon Dioxide 30 mmol/L (22.0-30.0); Chloride 100 mmol/L (98-107); Chol/HDL Ratio 5.1 (1-3.5); Cholesterol 169 mg/dl (140-200); Estimated Glomerular Filt Rate 74 ml/min (>60); GFR (African American) 90 ML/MIN (>60); Globulin 3.1 g/dL (1.3-3.2); Glucose 97 mg/dl (74-100); HDL Cholesterol 33 mg/dl (40-60); Sodium 140 mmol/L (136-145); Total Protein,Serum 7.9 g/dl (6.3-8.2); Triglycerides 196 mg/dl (30-150); VLDL Cholesterol 39 mg/dL (0-40)
[2024-01-20 09:30] LABS: Free T4 (Free Thyroxine) 0.68 ng/dl (0.78-2.19)
[2024-01-20 09:37] LABS: Direct LDL Cholesterol 83.87 mg/dL (100-129)
[2024-01-20 09:57] LABS: Thyroid Stimulating Hormone 4.23 uIU/mL (0.465-4.68)
[2024-01-20 10:16] LABS: Vitamin B12 544 pg/mL (239-931)
[2024-01-20 10:36] LABS: Hemoglobin A1C 5.7 % (4.0-6.0)
[2024-01-21 15:51] LABS: Estradiol 58.1 pg/mL (7.6-42.6)
[2024-01-31 02:58] LABS: 1,25 Dihydroxy Vitamin D 52 pg/mL (.); 1,25-Dihydroxy, Vitamin D-2 <10 pg/mL (.); 1,25-Dihydroxy, Vitamin D-3 52 pg/mL (.)
== END 2024-01-20 23:59 ==
LOC: LAB 08:02
PROVIDERS: PCP Internal Medicine; Visit Provider Internal Medicine
DX: R53.83 Other fatigue (principal); E34.9 Endocrine disorder, unspecified; E78.5 Hyperlipidemia, unspecified; E55.9 Vitamin D deficiency, unspecified; E78.1 Pure hyperglyceridemia; I10 Essential (primary) hypertension; E29.1 Testicular hypofunction
CPT/HCPCS: 36415; 80053; 80061; 82607; 82652; 82670; 83036; 84402; 84403; 84439; 84443; 85025

== ENCOUNTER 2024-02-09 08:09 | Outpatient (CLI) | payer BC, OTHER, SELFPAY ==
[2024-02-09 09:21] LABS: 25-OH Vitamin D, Total 65.1 ng/mL (30-100)
[2024-02-17 15:12] LABS: Testosterone, Total, LC/MS 446 ng/dL (.)
== END 2024-02-09 23:59 ==
LOC: LAB 08:10
PROVIDERS: PCP Internal Medicine; Visit Provider Internal Medicine
DX: E29.1 Testicular hypofunction (principal); E55.9 Vitamin D deficiency, unspecified
CPT/HCPCS: 36415; 82306; 84403

== ENCOUNTER 2024-04-05 08:01 | Outpatient (CLI) | payer BC, OTHER, SELFPAY ==
[2024-04-05 10:07] LABS: Free T4 (Free Thyroxine) 0.74 ng/dl (0.78-2.19)
[2024-04-05 10:15] LABS: Thyroid Stimulating Hormone 2.46 uIU/mL (0.465-4.68)
[2024-04-06 08:24] LABS: Estradiol 62.8 pg/mL (7.6-42.6)
[2024-04-12 14:13] LABS: Testosterone, Total, LC/MS 411 ng/dL (.)
== END 2024-04-05 23:59 | disposition home or self-care (01) ==
LOC: LAB 08:01
PROVIDERS: PCP Internal Medicine; Visit Provider Nurse Practitioner Family
DX: R53.83 Other fatigue (principal); E29.1 Testicular hypofunction; E34.9 Endocrine disorder, unspecified
CPT/HCPCS: 36415; 82670; 84403; 84439; 84443

== ENCOUNTER 2024-08-09 08:28 | Outpatient (CLI) | payer BC, OTHER, SELFPAY ==
[2024-08-09 09:38] LABS: Free T4 (Free Thyroxine) 0.84 ng/dl (0.78-2.19)
[2024-08-09 09:56] LABS: Thyroid Stimulating Hormone 2.18 uIU/mL (0.465-4.68)
[2024-08-20 01:07] LABS: Testosterone, Total, LC/MS 800 ng/dL (.)
== END 2024-08-09 23:59 | disposition home or self-care (01) ==
PROVIDERS: PCP Internal Medicine; Visit Provider Internal Medicine
DX: Z13.29 Encounter for screening for other suspected endocrine disorder (principal); E34.9 Endocrine disorder, unspecified
CPT/HCPCS: 36415; 84403; 84439; 84443

== ENCOUNTER 2024-08-10 10:13 | Outpatient (CLI) | payer BC, OTHER, SELFPAY ==
[2024-08-10 10:37] LABS: Basophils # 0.1 K/mm3 (0-0.2); Basophils % 0.8 % (0.1-2.0); Eosinophils # 0.2 K/mm3 (0.0-0.4); Eosinophils % 2.4 % (0.1-12.0); Hematocrit 49.4 % (42.0-52.0); Hemoglobin 16.4 g/dL (14.1-18.0); Lymphocytes # 1.4 K/mm3 (0.7-4.5); Lymphocytes % 21.9 % (10-50); Mean Corpuscular HGB Conc 33.1 g/dL (31.8-35.4); Mean Corpuscular Hemoglobin 31.2 pg (27.0-31.2); Mean Corpuscular Volume 94.4 fl (80-94); Mean Platelet Volume 8.5 fl (7.4-10.4); Monocytes # 0.3 K/mm3 (0.1-1.0); Monocytes % 5.1 % (1.7-9.3); Neutrophils # 4.6 K/mm3 (1.8-7.8); Neutrophils % 69.8 % (37.0-80.0); Platelet Count 235 K/mm3 (142-424); Red Blood Count 5.23 M/mm3 (4.60-6.20); Red Cell Distribution Width 13.9 % (11.5-17.5); White Blood Count 6.5 K/mm3 (4.8-10.8)
[2024-08-10 10:52] LABS: Alanine Aminotransferase 51 U/L (12-78); Albumin Level 4.7 g/dl (3.5-5.0); Albumin/Globulin Ratio 1.5 (1.1-1.8); Alkaline Phosphatase 84 U/L (38-126); Anion Gap 7.1 mEq/L (5-15); Aspartate Amino Transferase 69 U/L (17-59); Bilirubin,Total 0.9 mg/dl (0.2-1.3); Blood Urea Nitrogen 16 mg/dl (9-20); Calcium 9.3 mg/dl (8.4-10.2); Carbon Dioxide 34 mmol/L (22.0-30.0); Chloride 100 mmol/L (98-107); Chol/HDL Ratio 4.1 (1-3.5); Cholesterol 167 mg/dl (140-200); Estimated Glomerular Filt Rate 74 ml/min (>60); GFR (African American) 89 ML/MIN (>60); Globulin 3.2 g/dL (1.3-3.2); Glucose 96 mg/dl (74-100); HDL Cholesterol 41 mg/dl (40-60); Potassium 4.1 mmoL/L (3.5-5.1); Sodium 137 mmol/L (136-145); Total Protein,Serum 7.9 g/dl (6.3-8.2); Triglycerides 166 mg/dl (30-150); VLDL Cholesterol 33 mg/dL (0-40)
[2024-08-10 11:03] LABS: Direct LDL Cholesterol 78.76 mg/dL (100-129)
[2024-08-10 11:09] LABS: Free T4 (Free Thyroxine) 0.83 ng/dl (0.78-2.19)
[2024-08-10 11:42] LABS: Vitamin B12 608 pg/mL (239-931)
[2024-08-10 12:02] LABS: 25-OH Vitamin D, Total 72.5 ng/mL (30-100)
[2024-08-10 13:25] LABS: Hemoglobin A1C 5.7 % (4.0-6.0)
== END 2024-08-10 23:59 | disposition home or self-care (01) ==
LOC: LAB 10:14
PROVIDERS: PCP Internal Medicine; Visit Provider Internal Medicine
DX: Z13.1 Encounter for screening for diabetes mellitus (principal); Z13.220 Encounter for screening for lipoid disorders; Z13.21 Encounter for screening for nutritional disorder; Z00.00 Encounter for general adult medical examination without abnormal findings; Z13.29 Encounter for screening for other suspected endocrine disorder; E34.9 Endocrine disorder, unspecified
CPT/HCPCS: 36415; 80053; 80061; 82306; 82607; 82670; 83036; 84439; 85025

== ENCOUNTER 2024-10-18 08:13 | Outpatient (CLI) | payer BC, OTHER, SELFPAY ==
[2024-10-18 09:48] LABS: Free T4 (Free Thyroxine) 0.83 ng/dl (0.78-2.19)
[2024-10-19 08:22] LABS: Estradiol 58.7 pg/mL (7.6-42.6)
[2024-10-26 22:07] LABS: Testosterone, Total, LC/MS 491 ng/dL (.)
== END 2024-10-18 23:59 | disposition home or self-care (01) ==
LOC: LAB 08:13
PROVIDERS: PCP Internal Medicine; Visit Provider Internal Medicine
DX: Z13.29 Encounter for screening for other suspected endocrine disorder (principal); E03.9 Hypothyroidism, unspecified; E34.9 Endocrine disorder, unspecified
CPT/HCPCS: 36415; 82670; 84403; 84439; 84443

== ENCOUNTER 2024-11-29 08:38 | Outpatient (CLI) | payer BC, OTHER, SELFPAY ==
[2024-11-29 10:01] LABS: Free T4 (Free Thyroxine) 1.14 ng/dl (0.78-2.19)
== END 2024-11-29 23:59 | disposition home or self-care (01) ==
LOC: LAB 08:39
PROVIDERS: PCP Internal Medicine; Visit Provider Internal Medicine
DX: E34.9 Endocrine disorder, unspecified (principal)
CPT/HCPCS: 36415; 84403; 84439

== ENCOUNTER 2025-04-01 08:21 | Outpatient (CLI) | payer BC, SELFPAY ==
--- OUTSIDE RECORDS SUMMARY | 2025-04-01 08:24 | XMS_ITS ---
Author Organization Unknown Medications Medication Instructions Effective Dates (start - stop) Status cetirizine hydrochloride 10 MG Oral Tablet [id number]:00:00.000+00: 00 - Completed cetirizine hydrochloride 10 MG Oral Tablet [id number]:00:00.000+00: 00 - Completed fluticasone propionate 0.05 MG/ACTUAT Metered Dose Nasal [place] [id number]:00:00 .000+00: 00 - Completed fluoxetine 40 MG Oral Capsule 05-07-23:00:00.000+00: 00 - Completed simvastatin 40 MG Oral Tablet 06-01-02:00:00.000+00: 00 - Completed simvastatin 40 MG Oral Tablet 05-08-22:00:00.000+00: 00 - Completed fluticasone propionate 0.05 MG/ACTUAT Metered Dose Nasal [place] [id number]:00:00 .000+00: 00 - Completed fluticasone propionate 0.05 MG/ACTUAT Metered Dose Nasal [place] [id number]:00:00 .000+00: 00 - Completed simvastatin 40 MG Oral Tablet 05-10-27:00:00.000+00: 00 - Completed omeprazole 40 MG Delayed Rel ease Oral Capsule [id number]:00:00.000+00: 00 - Completed simvastatin 40 MG Oral Tablet 05-04-08:00:00.000+00: 00 - Completed simvastatin 40 MG Oral Tablet 04-09-25:00:00.000+00: 00 - Completed - [id number]:00 :00.000+00: 00 - Completed fluoxetine 40 MG Oral Capsule 06-03-24:00:00.000+00: 00 - Completed omeprazole 40 MG Delayed Rel ease Oral Capsule [id number]:00:00.000+00: 00 - Completed fluticasone propionate 0.05 MG/ACTUAT Metered Dose Nasal [place] [id number]:00:00 .000+00: 00 - Completed fluoxetine 40 MG Oral Capsule 05-10-27:00:00.000+00: 00 - Completed simvastatin 40 MG Oral Tablet 05-07-25:00:00.000+00: 00 - Completed omeprazole 40 MG Delayed Rel ease Oral Capsule [id number]:00:00.000+00: 00 - Completed fluticasone propionate 0.05 MG/ACTUAT Metered Dose Nasal [place] [id number]:00:00 .000+00: 00 - Completed fluticasone propionate 0.05 MG/ACTUAT Metered Dose Nasal [place] [id number]:00:00 .000+00: 00 - Completed simvastatin 40 MG Oral Tablet 04-11-29:00:00.000+00: 00 - Completed omeprazole 40 MG Delayed Rel ease Oral Capsule [id number]:00:00.000+00: 00 - Completed omeprazole 40 MG Delayed Rel ease Oral Capsule [id number]:00:00.000+00: 00 - Completed fluoxetine 40 MG Oral Capsule 05-06-24:00:00.000+00: 00 - Completed cetirizine hydrochloride 10 MG Oral Tablet [id number]:00:00.000+00: 00 - Completed fluticasone propionate 0.05 MG/ACTUAT Metered Dose Nasal [place] [id number]:00:00 .000+00: 00 - Completed omeprazole 40 MG Delayed Rel ease Oral Capsule [id number]:00:00.000+00: 00 - Completed simvastatin 40 MG Oral Tablet 04-06-29:00:00.000+00: 00 - Completed esomeprazole 40 MG Delayed R elease Oral Capsule [id number]:00:00.000+00: 00 - Completed esomeprazole 40 MG Delayed R elease Oral Capsule [id number]:00:00.000+00: 00 - Completed fluticasone propionate 0.05 MG/ACTUAT Metered Dose Nasal [place] [id number]:00: .000+00: - Completed - [id number]: :.000+00: 00 - Completed fluticasone propionate 0.05 MG/ACTUAT Metered Dose Nasal [place] [id number]:: .000+00: 00 - Completed valacyclovir 1000 MG Oral Tablet [id number]::.000+00: 00 - Completed valacyclovir 1000 MG Oral Tablet [id number]::.000+00: 00 - Completed fluticasone propionate 0.05 MG/ACTUAT Metered Dose Nasal [place] [id number]:00:00 .000+00: 00 - Completed sulfamethoxazole 800 MG / trimethoprim 160 MG Oral Tablet [id number]:00:00.00 000: 00 - Completed sulfamethoxazole 800 MG / trimethoprim 160 MG Oral Tablet [id number]:00:00.00 0+00: 00 - Completed Patient Care team information Name Category Status Period Participants - - Proposed period not known -
[2025-04-02 09:10] LABS: Estradiol 78.2 pg/mL (7.6-42.6)
== END 2025-04-01 23:59 | disposition home or self-care (01) ==
LOC: LAB 08:22
PROVIDERS: PCP Internal Medicine; Visit Provider Internal Medicine
DX: E03.9 Hypothyroidism, unspecified (principal)
CPT/HCPCS: 36415; 82670; 84403

== ENCOUNTER 2025-08-21 09:13 | Outpatient (CLI) | payer BC, SELFPAY ==
[2025-08-21 09:49] LABS: Hematocrit 46.1 % (42.0-52.0); Hemoglobin 15.4 g/dL (14.1-18.0); Immature Granulocytes % 0.6 %; Mean Corpuscular HGB Conc 33.4 g/dL (31.8-35.4); Mean Corpuscular Hemoglobin 30.0 pg (27.0-31.2); Mean Corpuscular Volume 89.9 fl (80-94); Nucleated Red Blood Cells % 0 %; Platelet Count 228 K/mm3 (142-424); Red Blood Count 5.13 M/mm3 (4.60-6.20); Red Cell Distribution Width-SD 40.3 fL; White Blood Count 8.1 K/mm3 (4.8-10.8)
[2025-08-21 11:21] LABS: Albumin Level 4.0 g/dl (3.5-5.0); Chloride 97 mmol/L (98-107); Potassium 4.1 mmoL/L (3.5-5.1); Sodium 139 mmol/L (136-145)
[2025-08-21 11:24] LABS: Alanine Aminotransferase 53 U/L (12-78); Albumin/Globulin Ratio 1.3 (1.1-1.8); Alkaline Phosphatase 95 U/L (38-126); Anion Gap 12.1 mEq/L (5-15); Aspartate Amino Transferase 47 U/L (17-59); Bilirubin,Total 0.5 mg/dl (0.2-1.3); Calcium 9.0 mg/dl (8.4-10.2); Carbon Dioxide 34 mmol/L (22.0-30.0); Cholesterol 140 mg/dl (140-200); Globulin 3.1 g/dL (1.3-3.2); Glucose 74 mg/dl (74-100); Total Protein,Serum 7.1 g/dl (6.3-8.2); Triglycerides 231 mg/dl (30-150)
[2025-08-21 11:25] LABS: HDL Cholesterol 34 mg/dl (40-60)
[2025-08-21 12:46] LABS: Blood Urea Nitrogen 14 mg/dl (9-20); Creatinine,Serum 1.10 mg/dl (0.66-1.25); Estimated Glomerular Filt Rate 73 ml/min (>60); GFR (African American) 89 ML/MIN (>60)
[2025-08-21 14:28] LABS: Hemoglobin A1C 5.6 % (4.0-6.0)
[2025-08-23 09:41] LABS: Testosterone,Total 1122 ng/dL (264-916)
== END 2025-08-21 23:59 | disposition home or self-care (01) ==
PROVIDERS: PCP Internal Medicine; Visit Provider Internal Medicine
DX: E34.9 Endocrine disorder, unspecified (principal); Z79.890 Hormone replacement therapy; Z79.899 Other long term (current) drug therapy; E78.5 Hyperlipidemia, unspecified; R73.03 Prediabetes
CPT/HCPCS: 80053; 80061; 82672; 83036; 84403; 85025